=== PATIENT | male | born 1955 | race Caucasian/White ===

== ENCOUNTER 2019-06-04 16:31 | Outpatient (CLI) | payer OTHER, SELFPAY | END 2019-06-04 16:32 | disposition home or self-care (01) | LOC: ANHLAB 16:33 | PROVIDERS: PCP Family Medicine; Visit Provider Urology | DX: N40.0 Benign prostatic hyperplasia without lower urinary tract symptoms (principal) | CPT/HCPCS: 87086 ==

== ENCOUNTER 2019-06-11 00:39 | Day surgery (SDC) | payer OTHER, SELFPAY ==
[2019-06-03 14:46] VITALS: BMI 22.8
[2019-06-11 13:28] VITALS: BP 116/64; PULSE 83; RESP 20; TEMP 36.5; O2SAT 100
[2019-06-11] MEDS: LACTATED RINGERS 1,000 ML 30 ML IV CONT (13:40)
--- NOTE | 2019-06-11 13:42 | ECG_ITS ---
Measurements Intervals [place] Rate: 72 P: 51 [place]: 142 QRS: 61 QRSD: 106 T: 44 QT: 376 QTc: 413 Interpretive Statements SINUS RHYTHM POSSIBLE LEFT ATRIAL ENLARGEMENT INCOMPLETE RIGHT BUNDLE BRANCH BLOCK BASELINE ARTIFACT- I, II, III BORDERLINE ECG Electronically Signed On 06-11-2019 14:10:25 RN CASE MANAGEMENT by Ramon Farrell D.O.
--- NOTE | 2019-06-11 14:31 | WPDANESEPPF ---
Anes - Initial Pre Proc Eval Procedure: Operation Date: 06/11/19 15:00 Proposed Procedures p Urolift - Cleo Walker MD Date/Time: 06/11/19 14:31 Surgeon: Cleo Walker MD Pre Op Diagnosis: BPH Patient Data Age: 63 Gender: M Height: 1.73 m Weight: 68.04 kg Allergies Allergy/AdvReac Type Severity Reaction Status Date / Time shellfish derived Allergy Unknown Hives Verified 06/11/19 14:29 Home Medications Medication Instructions Recorded Confirmed Type loratadine [Claritin] 10 mg PO DAILY 06/03/19 06/11/19 History rosuvastatin 20 mg PO DAILY 06/03/19 06/11/19 History tamsulosin 0.4 mg PO HS 06/03/19 06/11/19 History Patient hx anesthesia problems: none Family hx anesthesia problems: none PMFSH Past Medical History Medical History (Updated 06/10/19 @ 08:48 by Sheldon Pan DO) BPH (benign prostatic hyperplasia) [place] (hard of hearing) Hyperlipidemia Surgical History Surgical History (Updated 06/10/19 @ 08:48 by Sheldon Pan DO) History of appendectomy Social History Social History Smoking status: Never smoker Alcohol intake: current Anes - Eval Final PreProcedure Day of Procedure 06/11/19 14:31 Patient weight: normal Heart: regular rate and rhythm Lungs: clear to auscultation and normal air movement Airway: Mallampati scale class II Neurological: alert and oriented Last oral intake: >/= 8 hours ASA classification: II Emergent: no Anesthetic plan: proceed Anesthesia type and monitoring: general GIVS and standard monitoring Informed Consent: The patient's anesthetic plan and its attendant risks and benefits were discussed with the patient/family/POA. Questions were solicited and answers provided to the satisfaction of the patient/family/POA.
--- NOTE | 2019-06-11 14:53 | WPDHPUPDATE1 ---
History and Physical Update Update Date/Time: 06/11/19 14:53 History and Physical has been reviewed, including an updated exam of the patient. There are NO changes in the patient's condition. Risks, benefits, and alternatives have been discussed and questions answered. Patient agrees to proceed with procedure.
[2019-06-11] MEDS: ceFAZolin 2 GM/D5W 50 ML 2 GM/50 ML BAG IVPB (15:09)
[2019-06-11] MEDS: LIDOCAINE HCL 2% GEL UROJET 10 ML PKG MUCOUS MEM (15:18)
--- NOTE | 2019-06-11 16:08 | SUR.OPER ---
EBL:20CC
[2019-06-11 16:15] VITALS: BP 116/50; PULSE 80; O2SAT 100
[2019-06-11 16:45] VITALS: BP 122/72; PULSE 81
[2019-06-11 17:14] VITALS: BP 100/51; PULSE 78
--- NOTE | 2019-06-11 19:25 | OP_ITS ---
DATE OF PROCEDURE: 06/11/2019 PREOPERATIVE DIAGNOSIS: Benign prostatic hypertrophy with urinary obstruction. POSTOPERATIVE DIAGNOSIS: Benign prostatic hypertrophy with urinary obstruction. PROCEDURE PERFORMED: 1. Cystoscopy. 2. Placement of prostatic urethral lift (UroLift). DESCRIPTION OF PROCEDURE: Informed consent was obtained, the patient was taken to the operating room, given preoperative IV antibiotics. He was induced with anesthesia. He was placed in dorsal lithotomy position. He was prepped and draped in normal sterile fashion. Viscous lidocaine was injected. We then inserted the UroLift scope and revealed bilobar prostatic hyperplasia as well as moderate bladder trabeculation. We then exchanged to the UroLift delivery device. We began, given the shortened prostate with placement of first at the left side of the prostate just proximal to the verumontanum, sat was released. The needle was fired engaging a capsule tab. We then pulled back the needle, and then advanced towards midline of the urethra until the urethral end piece was centered in delivery bay. It was then cut. We then performed identical procedure on the contralateral side. we then inspected again and the tabs sat nicely. Given the patient's severe severity of symptoms, we elected to place 2 additional implants in a stacking fashion at the verumontanum, the one on the right sat nicely, the left one did not appear to seat appropriately. We placed a flexible cystoscope and noted the capsular tab to be in the bladder. We therefore used a grasper to grasp the left-sided urethra end piece, it was pulled and removed. This did remove both urethral end pieces and using a flexible cystoscopy we grasped the capsule tab that was sitting in the bladder and these pieces were removed. There was slight bleeding that was cauterized with a Bugbee electrocautery. We then inspected, as we had removed both left-sided tabs, an additional tab was placed at the verumontanum on the left side, seating appropriately. At this point, flexible cystoscopy was then performed. The bladder was free of implant. The three urethral end pieces appeared appropriately positioned with a nice anterior channel. At this point, due to the degree of manipulation, we elected to place an 18-Spanish Jackson catheter, it was left to gravity drainage. The patient will follow up in the office in 36 hours for a voiding trial. [place] I MT: Erica QURESHI
== END 2019-06-11 17:25 | disposition home or self-care (01) ==
PROVIDERS: PCP Family Medicine; Visit Provider Urology
PROC: 0T7D8DZ Dilation of Urethra with Intraluminal Device, Via Natural or Artificial Opening Endoscopic (ICD-10-PCS; CPT 52441; principal; 2019-06-11 15:00)
DX: N40.1 Benign prostatic hyperplasia with lower urinary tract symptoms (principal); N13.8 Other obstructive and reflux uropathy; E78.5 Hyperlipidemia, unspecified
CPT/HCPCS: 52441; 52442 ×4; 93005; A9270; J0131; J0690; J1100; J2250; J2405; J2590; J2704; J3010; J7120; L8699

== ENCOUNTER 2021-02-09 13:53 | Outpatient (CLI) | payer OTHER, SELFPAY ==
--- NOTE | ~2021-02-09 | US_ITS ---
US breast RT complete INDICATION: Palpable breast lump TECHNIQUE: Dedicated right breast ultrasound COMPARISON: No prior studies for comparison. FINDINGS: The right breast is composed of normal heterogeneous echotexture without focal solid or cys tic mass. IMPRESSION: 1: Normal right breast ultrasound. BI-RADS CATEGORY 1 - NEGATIVE Reviewed, dictated and finalized at location A.
== END 2021-02-09 13:54 | disposition home or self-care (01) ==
LOC: ANHIMG 13:58
PROVIDERS: PCP Family Medicine; Visit Provider Nurse Practitioner Family
DX: N63.0 Unspecified lump in unspecified breast (principal); N64.4 Mastodynia
CPT/HCPCS: 76641

== ENCOUNTER 2022-08-04 00:26 | Day surgery (SDC) | payer OTHER, SELFPAY ==
[2022-07-26 13:58] VITALS: BMI 23.4
--- NOTE | 2022-08-03 10:08 | WPDANESEPPF ---
Anes - Initial Pre Proc Eval Procedure: Operation Date: 08/04/22 09:30 Proposed Procedures p Screening Colonoscopy - Elvis Oh MD Date/Time: 08/03/22 10:08 Surgeon: Elvis Oh MD Pre Op Diagnosis: neoplasm screening Patient Data Age: 67 Gender: M Height: 1.7 m Weight: 68 kg Allergies Allergy/AdvReac Type Severity Reaction Status Date / Time shellfish derived Allergy Unknown Hives Verified 08/04/22 08:14 Home Medications Medication Instructions Recorded Confirmed Type rosuvastatin 20 mg tablet 20 mg PO DAILY #90 tabs 07/05/22 08/04/22 Rx fluticasone propionate 50 1 spray intranasal BID #18.2 mL 07/21/22 08/04/22 Rx mcg/actuation nasal spray,suspension Patient hx anesthesia problems: none Family hx anesthesia problems: none Results Review: All pre-operative results and documents have been reviewed as part of the pre-operative evaluation. [facility] Past Medical History Medical History BMI 21.0-21.9, adult BMI 24.0-24.9, adult BPH (benign prostatic hyperplasia) Elevated PSA [place] (hard of hearing) Hyperlipidemia Surgical History Surgical History History of appendectomy History of bowel resection Family History Family History Father Mother Malignant neoplasm of prostate Glaucoma Sibling No problems noted. 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 Informed Consent: The patient's anesthetic plan and its attendant risks and benefits were discussed with the patient/family/POA. Questions were solicited and answers provided to the satisfaction of the patient/family/POA.
[2022-08-04 08:15] VITALS: BP 129/73; PULSE 95; RESP 18; TEMP 36.2; O2SAT 97
[2022-08-04] MEDS: LACTATED RINGERS 1,000 ML 150 ML IV CONT (08:22)
--- NOTE | 2022-08-04 09:08 | PM.HPGS ---
History of Present Illness History of Present Illness Consent: Risks, benefits, and alternatives have been discussed and questions answered. Patient agrees to proceed with procedure. Chief complaint: neoplasm screening Narrative: Diego Mckeon is a 67 year old male here for screening colonoscopy Review of Systems Constitutional: Constitutional: Denies headache(s) and Denies weakness Eyes: Eyes: Denies blurry vision ENT: Reports Normal hearing present, Denies headache(s) and Denies neck pain Cardiovascular: Cardiovascular: Denies chest pain and Denies dyspnea Respiratory: Respiratory: Denies dyspnea Gastrointestinal: Gastrointestinal: Reports no additional gastrointestinal complaints Genitourinary: Genitourinary: Denies dysuria Musculoskeletal: Musculoskeletal: Denies neck pain Integumentary/Breasts: Skin/Breast: Denies dry skin Neurologic: Reports Normal hearing present, Denies headache(s) and Denies weakness Psychiatric: Psychiatric: Denies anxiety Endocrine: Endocrine: Denies change in body appearance Hematologic/Lymphatic: Hematologic/Lymphatic: Denies easy bleeding Allergic/Immunologic: Allergic/Immunologic: Denies urticaria PMF Past Medical History Medical History BMI 21.0-21.9, adult BMI 24.0-24.9, adult BPH (benign prostatic hyperplasia) Elevated PSA [place] (hard of hearing) Hyperlipidemia Surgical History Surgical History History of appendectomy History of bowel resection Family History Family History Father Mother Malignant neoplasm of prostate Glaucoma Sibling No problems noted. 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 Gender identity (if verbalized by the patient): Male Spiritual care concerns: No Meds Home Medications and Allergies Home Medications Medication Instructions Recorded Confirmed Type rosuvastatin 20 mg tablet 20 mg PO DAILY #90 tabs 07/05/22 08/04/22 Rx fluticasone propionate 50 1 spray intranasal BID #18.2 mL 07/21/22 08/04/22 Rx mcg/actuation nasal spray,suspension Allergies Allergy/AdvReac Type Severity Reaction Status Date / Time shellfish derived Allergy Unknown Hives Verified 08/04/22 08:14 Vital Signs Vital Signs - 24 hr 08/04/22 08:15 Temperature 97.2 F L Pulse Rate 95 Respiratory Rate 18 Blood Pressure 129/73 Pulse Oximetry 97 Oxygen Delivery Room Air Exam Const: General: comfortable and no acute distress HENMT: Face/Nose/Sinus: Normal nares present Eyes: General: appearance normal, both eyes and all related structures Neck: Neck: no JVD Resp: Auscultation: clear to auscultation bilaterally Cardio: Rate: regular rate Rhythm: regular rhythm GI: Inspection: non-distended GI Palp: Yes Soft to palpation Skin: General skin exam: normal color Neuro: General: gait normal Speech: normal speech Extrem: General: normal to inspection Psych: Mental Status: mental status grossly normal Assessment and Plan Assessment and plan (1) Screening for colon cancer: Code(s): Z12.11 - Encounter for screening for malignant
[2022-08-04 09:32] VITALS: BP 101/65; PULSE 78; RESP 15; O2SAT 95
[2022-08-04 09:42] VITALS: BP 112/71; PULSE 77; RESP 16; O2SAT 96
[2022-08-04 09:52] VITALS: BP 117/75; PULSE 79; RESP 15; O2SAT 96
== END 2022-08-04 10:01 | disposition home or self-care (01) ==
PROVIDERS: PCP Family Medicine; Visit Provider Internal Medicine Gastroenterology
PROC: 0DJD8ZZ Inspection of Lower Intestinal Tract, Via Natural or Artificial Opening Endoscopic (ICD-10-PCS; CPT 45378; principal; 2022-08-04 09:30)
DX: Z12.11 Encounter for screening for malignant neoplasm of colon (principal); D12.4 Benign neoplasm of descending colon; K57.30 Diverticulosis of large intestine without perforation or abscess without bleeding; K64.8 Other hemorrhoids; E78.5 Hyperlipidemia, unspecified; Z87.891 Personal history of nicotine dependence
CPT/HCPCS: 45385; 88305; J2704; J7120

== ENCOUNTER 2024-06-19 07:33 | Outpatient (CLI) | payer OTHER, SELFPAY ==
--- OUTSIDE RECORDS SUMMARY | 2024-06-19 07:36 | XMS_ITS | Continuity of Care Document ---
Author Organization [facility] Address [address] [place] [address] [place] [address] Phone Care Team Providers Care Egg And Spice Mixer Name Role Phone Ming Roger DO Unavailable Unavailable Advance Directives Directive Yes / No Effective Date File Name No Information Encounters Encounter Description Practice Location Reason(s) For Visit Diagnoses Date Provider Providers Copied on Encounter [facility], [address], [place], [place], [id number], tel:[phone] [facility] No Information Kana Anderson. [address] [facility], [place], [address], [place]. tel:[phone] Referring Provider: Barrington De La O, [address], [place], [address]. tel:[phone] Family History Family Member Type Diagnosis Age At Onset No Information Payers Payer name Insurance type Covered alliance party ID Authoriza tion(s) No Information Social History Type Description Quantity Date Captured Comments Sex Male Smoking Status No Information Chief Complaint And Reason For Visit No Information Reason For Referral Reason For Referral No Information History Of Present Illness Encounter Date Complaint History Of Prese nt Illness No Information Functional Status Date Functional Assessmen t No Information Instructions Date Instruction Additional Infor mation No Information Assessments Type Assessment Date No Information Patient Care Teams Name Effective Dates (start - stop) Status Members No Information
--- OUTSIDE RECORDS SUMMARY | 2024-06-19 07:36 | XMS_ITS | Clinical Summary ---
Author Organization 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 Gender Identity Not on file Sexual Orientation Not on file Plan of Treatment Health Maintenance Due Date Last Done Comments Hepatitis C Virus (HCV) Screening 1955 TdaP Immunization 1955 Colonoscopy 06/13/2000 Colorectal Cancer Screening 06/13/2000 Cologuard 06/13/2005 Immunochemical Fecal Occult Blood 06/13/2005 Pneumococcal Immunization (5 0+ years) (1 of 1 - PCV) 06/13/2005 Zoster Immunization (1 of 2) 06/13/2005 PSA Discussion 06/13/2010 Influenza Immunization (#1) 12/09/202312/08, 12/19/2017, 02/15/2015 SARS-COV-2 Immunization (2023- season) 2023 Respiratory Syncytial Virus (RSV) Immunization (Adult) (1 - 1-dose 75+ series) 06/13/2030 Hepatitis B Immunization Aged Out No longer eligible based on patient's age to complete this topic Meningococcal Immunization (ACWY) Aged Out No longer eligible b ased on patient's age to complete this topic Rotavirus Immunization Aged Out No lo nger eligible based on patient's age to complete this topic Insurance [employer] on file
[2024-06-19 08:39] LABS: Basophils Percent Auto 0.4 % (0.2-1.2); Eosinophils Absolute Auto 0.2 K/mm3 (0-0.3); Eosinophils Percent Auto 1.6 % (0-4.4); Hematocrit 42.7 % (42.0-52.0); Immature Granulocyte Absolute 0.03 K/mm3 (0.00-0.031); Immature Granulocyte Percent A 0.3 % (0-0.5); Lymphocytes Absolute Auto 2.71 K/mm3 (0.9-3.2); Lymphocytes Percent Auto 26.3 % (18.3-44.2); Mean Corpuscular HGB Conc 32.8 g/dl (32-36); Mean Corpuscular Hemoglobin 29.2 pg (26-34); Mean Platelet Volume 9.6 fl (7.4-10.4); Monocytes Absolute Auto 0.9 K/mm3 (0.1-0.6); Monocytes Percent Auto 8.4 % (2.6-8.5); Neutrophils Absolute Auto 6.5 K/mm3 (1.3-6.7); Platelet Count Result 260 k/mm3 (150-375); Red Cell Distribution Width 13.1 % (11.5-14.5); White Blood Count 10.3 K/mm3 (4.5-10.0)
[2024-06-19 09:07] LABS: Alanine Aminotransferase 18 U/L (6-50); Albumin Level 4.2 g/dL (3.5-5.1); Alkaline Phosphatase 79 U/L (38-126); Anion Gap 9 mmol/L (4-12); Aspartate Amino Transferase 22 U/L (17-59); Bilirubin,Total 0.5 mg/dL (0.2-1.3); Blood Urea Nitrogen 13 mg/dL (9-20); Calcium 8.7 mg/dL (8.4-10.2); Carbon Dioxide 25 mmol/L (22-30); Chloride 105 mmol/L (98-107); Cholesterol 126 mg/dL (0-200); Estimated Glomerular Filt Rate > 60; Glucose 104 mg/dL (65-110); HDL Direct 46 mg/dL; Potassium 4.3 mmol/L (3.4-5.0); Sodium 139 mmol/L (137-145); Triglycerides 93 mg/dL (<150)
[2024-06-19 09:24] LABS: LDL Cholesterol Direct 51 mg/dL
== END 2024-06-19 07:34 | disposition home or self-care (01) ==
PROVIDERS: PCP Family Medicine; Visit Provider Nurse Practitioner Adult Health
DX: E78.5 Hyperlipidemia, unspecified (principal); E78.2 Mixed hyperlipidemia
CPT/HCPCS: 36415; 80053; 80061; 84443; 85025